=== PATIENT | male | born 1945 | race Caucasian/White ===

== ENCOUNTER → 2017-11-08 | Emergency (ER) | payer OTHER ==
[~2017-11-08] VITALS: Ht 172.7 cm; Wt 99.8 kg
[~2017-11-08] MED LIST: ATENOLOL50 MG; COZAAR25 MG; JANUVIA25 MG; LASIX20 MG; LIPITOR20 MG; SINGULAIR 4MG4 MG
== END | disposition home or self-care (01) ==
LOC: ER 09:57 → CPU-OBS 11:16 → ER 11:16
DX: R06.02 Shortness of breath (principal); R05 Cough
CPT/HCPCS: G0379; 93005; 82805; 36600

== ENCOUNTER 2019-06-14 18:38 | Emergency (ER) | payer OTHER ==
[~2019-06-14] VITALS: Ht 172.7 cm; Wt 99.8 kg
== END 2019-06-14 21:36 | disposition home or self-care (01) ==
LOC: ER 18:38
DX: I16.0 Hypertensive urgency (principal); I10 Essential (primary) hypertension

== ENCOUNTER 2019-07-22 09:59 | Outpatient (CLI) | payer OTHER | END 2019-07-22 10:02 | disposition home or self-care (01) | LOC: SONOGRAMA 09:59 → MAMO-SONO 10:45 | DX: N28.89 Other specified disorders of kidney and ureter (principal) ==

== ENCOUNTER 2020-10-10 14:25 | Outpatient (CLI) | payer OTHER | END 2020-10-10 14:35 | disposition home or self-care (01) | LOC: RAD 14:25 | DX: J98.4 Other disorders of lung (principal); J45.998 Other asthma; C61 Malignant neoplasm of prostate; J43.8 Other emphysema; E11.9 Type 2 diabetes mellitus without complications; Z23 Encounter for immunization ==

== ENCOUNTER 2021-03-13 08:02 | Outpatient (CLI) | payer OTHER | END 2021-03-13 08:07 | disposition home or self-care (01) | LOC: SONOGRAMA 08:02 → MAMO-SONO 08:15 | PROVIDERS: ATTEND Internal Medicine Hepatology | DX: R10.11 Right upper quadrant pain (principal) ==

== ENCOUNTER 2021-04-09 07:57 | Outpatient (CLI) | payer OTHER | END 2021-04-09 08:02 | disposition home or self-care (01) | LOC: NUCLEAR 07:57 | PROVIDERS: ATTEND Internal Medicine | DX: I87.2 Venous insufficiency (chronic) (peripheral) (principal); M54.5 Low back pain; E55.9 Vitamin D deficiency, unspecified ==

== ENCOUNTER → 2021-05-23 | Outpatient (CLI) | payer OTHER | END | disposition home or self-care (01) | LOC: PPH VACUNA 08:00 | PROVIDERS: ATTEND Emergency Medicine Pediatric Emergency Medicine | DX: Z23 Encounter for immunization (principal) ==

== ENCOUNTER 2021-12-02 08:00 | Outpatient (CLI) | payer OTHER | END 2021-12-02 08:30 | disposition home or self-care (01) | LOC: PPH VACUNA 08:00 | PROVIDERS: ATTEND Emergency Medicine Pediatric Emergency Medicine | DX: Z23 Encounter for immunization (principal) ==

== ENCOUNTER 2022-05-22 13:22 | Outpatient (CLI) | payer OTHER | END 2022-05-22 13:32 | disposition home or self-care (01) | LOC: PPH VACUNA 13:22 | PROVIDERS: ATTEND Emergency Medicine Pediatric Emergency Medicine | DX: Z23 Encounter for immunization (principal) ==

== ENCOUNTER 2022-10-29 11:14 | Outpatient (CLI) | payer OTHER | END 2022-10-29 11:30 | disposition home or self-care (01) | LOC: SONOGRAMA 11:14 | PROVIDERS: ATTEND Internal Medicine Hematology & Oncology | DX: L04.0 Acute lymphadenitis of face, head and neck (principal) ==

== ENCOUNTER → 2022-12-16 | Outpatient (CLI) | payer OTHER | END | disposition home or self-care (01) | LOC: RAD 13:48 | PROVIDERS: ATTEND Ophthalmology | DX: H25.012 Cortical age-related cataract, left eye (principal); Z98.42 Cataract extraction status, left eye ==

== ENCOUNTER 2022-12-17 13:12 | Outpatient (CLI) | payer OTHER | END 2022-12-17 13:14 | disposition home or self-care (01) | LOC: NUCLEAR 13:12 | PROVIDERS: ATTEND Ophthalmology | DX: I11.9 Hypertensive heart disease without heart failure (principal) ==

== ENCOUNTER 2024-10-11 13:49 | Outpatient (CLI) | payer OTHER | END 2024-10-11 14:00 | disposition home or self-care (01) | LOC: RAD 13:49 | DX: M19.90 Unspecified osteoarthritis, unspecified site (principal); M16.6 Other bilateral secondary osteoarthritis of hip; M15.9 Polyosteoarthritis, unspecified ==

== ENCOUNTER 2024-12-25 08:57 | Outpatient (CLI) | payer OTHER ==
[~2024-12-25 08:57] MED LIST changes: +DULOXETINE HCL30 MG PO
== END 2024-12-25 08:58 | disposition home or self-care (01) ==
LOC: NUCLEAR 08:57
DX: R60.0 Localized edema (principal)

== ENCOUNTER 2024-12-26 08:46 | Outpatient (CLI) | payer OTHER | END 2024-12-26 08:47 | disposition home or self-care (01) | LOC: NUCLEAR 08:46 | DX: R60.0 Localized edema (principal) ==

== ENCOUNTER 2025-03-04 16:59 | Emergency (ER) | payer OTHER ==
[~2025-03-04] VITALS: Ht 172.7 cm; Wt 88.5 kg
[2025-03-04] MEDS ORDERED: FARXIGA5 MG PO (17:11)
[2025-03-04] MEDS ORDERED: KERENDIA10 MG PO (17:12)
[2025-03-04] MEDS ORDERED: NIFEDIPINE20 MG (17:12)
[2025-03-04] MEDS ORDERED: SENSIPAR30 MG (17:12)
[2025-03-04] MEDS ORDERED: KETOROLAC TROMETHAMINE 60 MG VIAL IM ONE (18:30)
[2025-03-04 18:52] LABS: BASO % 0.4 % (0.1-1.2); EOS # 0.16 (0.04-0.54); EOS % 1.1 % (0.7-7.0); LYMPH # 2.00 (1.18-3.74); LYMPH % 13.4 % (19.3-53.1); MEAN PLATELET VOLUME 10.90 fl (9.4-12.4); MONO # 1.41 (0.24-0.82); MONO % 9.5 % (4.7-12.5); NEUT # 11.19 (1.56-6.13); NEUT % 75.3 % (34.0-71.1); RED CELL DISTRIBUTION WIDTH 13.6 % (11.6-14.4)
[2025-03-04 19:18] LABS: ALT/SGPT 36.0 U/L (12-78); AST/SGOT 17.0 U/L (15-37); BILIRUBIN TOTAL 0.85 mg/dL (0.3-1.2); BUN CREA RATIO 17.0 (7.0-25.0); CREATININE SERUM 1.72 mg/dL (0.70-1.30); GFR 38.26; GLOBULINA 3.4 G/DL (2.4-3.5); GLUCOSE FASTING 140.0 mg/dL (65-100); OSMOLALITY SERUM 280.0 MOSM/KG (275-295)
[2025-03-04 20:06] LABS: URINE APPEARANCE Clear; URINE BILIRRUBIN Negative (NEGATIVE); URINE BLOOD Large; URINE COLOR Dark Yellow; URINE KETONE Negative (NEGATIVE); URINE LEUKOCYTE Moderate; URINE NITRATE Positive; URINE PROTEIN 30 (NEGATIVE); URINE UROBILINOGEN 1.0 E.U./dl
[2025-03-04 20:10] LABS: URINE BACTERIA 4816.8 uL (0.0-1933); URINE EPITHELIAL CELLS 1.6 uL (0.0-38.8); URINE RBC 1036.6 uL (0.0-20.8); URINE WBC 550.1 uL (0.0-23.2)
[2025-03-04 20:17] LABS: URINE CAST 0.00 uL (0.0-1.40); URINE GLUCOSE >=1000 MG/DL (NEGATIVE)
[2025-03-04] MEDS ORDERED: BACTRIM DS TAB1 EACH PO (20:39)
[2025-03-04] MEDS ORDERED: CEFTRIAXONE SODIUM 1,000 MG VIAL IM ONE (21:30)
== END 2025-03-04 21:03 | disposition home or self-care (01) ==
LOC: ER 17:03
PROVIDERS: Preventive Medicine Public Health & General Preventive Medicine
DX: N39.0 Urinary tract infection, site not specified (principal); E11.9 Type 2 diabetes mellitus without complications; Z79.84 Long term (current) use of oral hypoglycemic drugs; I10 Essential (primary) hypertension; E03.9 Hypothyroidism, unspecified

== ENCOUNTER 2025-03-06 10:15 | Outpatient (CLI) | payer OTHER ==
[~2025-03-06 10:15] MED LIST changes: +BACTRIM DS TAB1 EACH PO; +FARXIGA5 MG PO; +KERENDIA10 MG PO; +NIFEDIPINE20 MG; +SENSIPAR30 MG
== END 2025-03-08 08:08 | disposition home or self-care (01) ==
LOC: SONOGRAMA 10:15
PROVIDERS: ATTEND Internal Medicine Endocrinology, Diabetes & Metabolism
DX: R13.10 Dysphagia, unspecified (principal); C67.8 Malignant neoplasm of overlapping sites of bladder

== ENCOUNTER 2025-03-14 13:52 | Outpatient (CLI) | payer OTHER | END 2025-03-14 17:05 | disposition home or self-care (01) | LOC: TOM 13:52 | PROVIDERS: ATTEND Radiology Diagnostic Radiology | DX: R10.11 Right upper quadrant pain (principal) ==

== ENCOUNTER → 2025-05-16 | Outpatient (CLI) | payer OTHER ==
[~2025-05-16] MED LIST changes: +ATORVASTATIN CA10 MG; +FARXIGA5 MG; +FUROSEMIDE20 MG PO; +[UNRECOGNIZED DRUG - OTHER]
== END | disposition home or self-care (01) ==
LOC: TOM 13:50
DX: N20.1 Calculus of ureter (principal); N32.89 Other specified disorders of bladder

== ENCOUNTER 2025-05-24 14:16 | Outpatient (CLI) | payer OTHER | END 2025-05-24 14:36 | disposition home or self-care (01) | LOC: EKG 14:16 → EDBD 14:16 → EKG 14:36 | DX: I10 Essential (primary) hypertension (principal); Z01.818 Encounter for other preprocedural examination ==